=== PATIENT | female | born 1980 | race Hispanic/Latino ===

== ENCOUNTER 2018-09-04 17:50 | Emergency (ER) | payer SELFPAY ==
--- NOTE | 2018-09-04 19:03 | RAD REPORT ---
EXAM DESCRIPTION: RAD - Foot Right 3 View - 09/04/2018 6:54 pm CLINICAL HISTORY: Foot pain, twisting injury COMPARISON: None. FINDINGS: No fracture, dislocation or periosteal reaction. No pathologic bone process. Distal fibula finding is separately detailed. No air or foreign body in the soft tissues. IMPRESSION: Negative right foot examination for acute finding.
--- NOTE | 2018-09-04 19:03 | RAD REPORT ---
EXAM DESCRIPTION: RAD - Ankle Right 3 View - 09/04/2018 6:54 pm CLINICAL HISTORY: Ankle pain, twisting injury COMPARISON: None. FINDINGS: Transverse fracture is present at the distal fibula. No distraction or angulation deformit y. Distal tibia is intact. Ankle mortise is normal. No joint effusion seen. No joint space narrowing. Prominent lateral soft tissue swelling. IMPRESSION: Distal fibula fracture without distraction or angulation.
[2018-09-04] MEDS ORDERED: ACETAMINOPHEN 325 MG TABLET ONE (19:20)
[2018-09-04] MEDS ORDERED: IBUPROFEN 400 MG TAB ONE (19:20)
--- NOTE | 2018-09-04 19:32 | EDPHYS ---
Physician Documentation [facility] Name: Vane Torres Age: 38 yrs Sex: Female : 1980 Arrival Date: 09/04/2018 Time: 17:52 Bed 18 Private MD: ED Physician Charles Low HPI: 09/04 18:23 This 38 yrs old Female presents to ER via Ambulatory with complaints of Ankle cp Injury. 18:25 The patient presents with an injury, pain, that is acute, swelling, tenderness. The cp complaints affect the right ankle, right foot. 18:25 Onset: The symptoms/episode began/occurred 4 day(s) ago. Context: resulted from a cp mis-step by the patient, The patient can fully bear weight on the affected extremity. the patient is able to ambulate, with moderate difficulty. Associated signs and symptoms: Pertinent negatives: calf tenderness, numbness, weakness. Modifying factors: the symptoms are aggravated by weight bearing, movement. 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 - Social history:: Smoking status: Patient/guardian denies using tobacco. - Ebola Screening: : Patient negative for fever greater than or equal to 101.5 degrees Fahrenheit, and additional compatible Ebola Virus Disease symptoms Patient denies exposure to infectious person Patient denies travel to an Ebola-affected area in the 21 days before illness onset No symptoms or risks identified at this time. ROS: 18:30 Constitutional: Negative for body aches, chills, fever, poor PO intake. cp 18:30 Eyes: Negative for injury, pain, redness, and discharge. cp 18:30 ENT: Negative for drainage from ear(s), ear pain, sore throat, difficulty swallowing, difficulty handling secretions. 18:30 Cardiovascular: Negative for chest pain. 18:30 Respiratory: Negative for cough, shortness of breath, wheezing. 18:30 Abdomen/GI: Negative for abdominal pain, nausea, vomiting, and diarrhea, black/tarry stool, rectal bleeding. 18:30 Back: Negative for pain at rest, pain with movement. 18:30 MS/extremity: Positive for pain, swelling, tenderness, of the right ankle and right foot. 18:30 Neuro: Negative for altered mental status, headache, numbness. 18:30 All other systems are negative. Exam: 18:40 Constitutional: The patient appears in no acute distress, alert, awake, non-toxic, well cp developed, well nourished. 18:40 Head/Face: Normocephalic, atraumatic. cp 18:40 Eyes: Periorbital structures: appear normal, Conjunctiva: normal, no exudate, no injection, Lids and lashes: appear normal, bilaterally. 18:40 ENT: External ear(s): are unremarkable, Nose: is normal, Mouth: is normal, Posterior pharynx: Airway: no evidence of obstruction, patent. 18:40 Chest/axilla: Inspection: normal. 18:40 Cardiovascular: Rate: normal. 18:40 Respiratory: the patient does not display signs of respiratory distress, Respirations: normal, no use of accessory muscles, no retractions. 18:40 Abdomen/GI: Inspection: abdomen appears normal. 18:40 Back: pain, is absent, ROM is normal. 18:40 Musculoskeletal/extremity: Extremities: grossly normal except: noted in the lateral aspect of right foot and anterior aspect of right ankle and lateral right ankle: ecchymosis, swelling, tenderness, There is no evidence of decreased ROM, deformity, Achilles tendon intact and no pain to palpation proximal right fibula. Vital Signs: 18:10 BP 133 / 67; Pulse 65; Resp 16; Temp 97.5; Pulse Ox 100% on R/A; Weight 68.04 kg; aj Height 5 ft. 2 in. (157.48 cm); 18:10 Body Mass Index 27.44 (68.04 kg, 157.48 cm) Procedures: 20:20 Splinting: Splint applied to right ankle and right foot using walking boot. applied by cp nurse. Examined by me, post splint application: neurovascular intact, Patient tolerated well. MDM: 18:18 Patient medically screened. [facility] 19:30 Data reviewed: vital signs, nurses notes, radiologic studies, plain films, and as a cp result, I will discharge patient. 19:30 Differential diagnosis: fracture, sprain, dislocation. Counseling: I had a detailed cp discussion with the patient and/or guardian regarding: the historical points, exam findings, and any diagnostic results supporting the discharge/admit diagnosis, radiology results, the need for outpatient follow up, a orthopedic surgeon, to return to the emergency department if symptoms worsen or persist or if there are any questions or concerns that arise at home. Response to treatment: the patient's symptoms have markedly improved after treatment, and as a result, I will discharge patient. 09/04 18:23 Order name: XRAY Ankle RIGHT 3 view cp 09/04 18:23 Order name: XRAY Foot RIGHT 3 View cp 09/04 19:27 Order name: Walking boot; Complete Time: 20:23 cp 09/04 19:27 Order name: Crutches; Complete Time: 20:23 cp Administered Medications: 19:10 Drug: Ibuprofen 800 mg Route: PO; jb4 20:14 Follow up: Response: No adverse reaction ak1 19:10 Drug: Tylenol 650 mg Route: PO; jb4 20:14 Follow up: Response: No adverse reaction ak1 Disposition: 09/05 06:20 Co-signature as Attending Physician, Charles Low MD I agree with the assessment and ann plan of care. Disposition: 09/04/18 19:31 Discharged to Home. Impression: Right distal fibula fracture. - Condition is Stable. - Discharge Instructions: Fibular Ankle Fracture Treated With or Without Immobilization, Adult. - Prescriptions for Ibuprofen 800 mg Oral Tablet - take 1 tablet by ORAL route every 8 hours As needed take with food; 30 tablet. Tylenol- Codeine #3 300-30 mg Oral Tablet - take 2 tablets by ORAL route every 6 hours As needed; 20 tablet. - Medication Reconciliation Form, Thank You Letter, Antibiotic Education, Prescription Opioid Use form. - Follow up: Anton Doherty MD; When: 2 - 3 days; Reason: Recheck today's complaints. - Problem is new. - Symptoms have improved. Signatures: Dispatcher [employer] EDLory Arenas RN RN aj Anderson, Corey, MD MD cha Page, Corey, PA PA cp Bryson, James, RN RN jb4 Krystal Fletcher RN ak1 Corrections: (The following items were deleted from the chart) 09/04 20:24 19:31 09/04/2018 19:31 Discharged to Home. Impression: Right distal fibula fracture. jb4 Condition is Stable. Forms are Medication Reconciliation Form, Thank You Letter, Antibiotic Education, Prescription Opioid Use. Follow up: Anton Doherty; When: 2 - 3 days; Reason: Recheck today's complaints. Problem is new. Symptoms have improved. cp 09/05 17:27 09/04 19:20 Splinting: Splint applied to right ankle and right foot using walking boot. cp applied by nurse. Examined by me, post splint application: neurovascular intact, Patient tolerated well, cp
--- NOTE | 2018-09-04 19:32 | ER ---
Nurse's Notes [facility] Name: Vane Torres Age: 38 yrs Sex: Female : 1980 Arrival Date: 09/04/2018 Time: 17:52 Bed 18 Private MD: Diagnosis: Right distal fibula fracture Presentation: 09/04 18:09 Presenting complaint: Patient states: Bruising and swelling to right ankle since aj Monday. Transition of care: patient was not received from another setting of care. Onset of symptoms was August 30, 2018. Risk Assessment: Do you want to hurt yourself or someone else? Patient reports no desire to harm self or others. Initial Sepsis Screen: Does the patient meet any 2 criteria? No. Patient's initial sepsis screen is negative. Does the patient have a suspected source of infection? No. Patient's initial sepsis screen is negative. Care prior to arrival: None. 18:09 Method Of Arrival: Ambulatory aj 18:09 Acuity: BEBETO 4 aj Triage Assessment: 18:10 General: Appears in no apparent distress. comfortable, Behavior is calm, cooperative, aj appropriate for age. Pain: Complains of pain in right ankle and anterior aspect of right ankle. Neuro: Level of Consciousness is awake, alert, obeys commands, Oriented to person, place, time, situation, Appropriate for age. Respiratory: Airway is patent Respiratory effort is even, unlabored, Respiratory pattern is regular, symmetrical. Derm: Skin is intact, is healthy with good turgor, Skin is pink, warm \\T\\ dry. normal. Musculoskeletal: Range of motion: intact in all extremities. Injury Description: Bruise sustained to right ankle and lateral aspect of right foot. 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 - Social history:: Smoking status: Patient/guardian denies using tobacco. - Ebola Screening: : Patient negative for fever greater than or equal to 101.5 degrees Fahrenheit, and additional compatible Ebola Virus Disease symptoms Patient denies exposure to infectious person Patient denies travel to an Ebola-affected area in the 21 days before illness onset No symptoms or risks identified at this time. Screenin:25 Abuse screen: Denies threats or abuse. Nutritional screening: No deficits noted. ae4 Tuberculosis screening: No symptoms or risk factors identified. Fall Risk None identified. Assessment: 18:22 General: Appears in no apparent distress. comfortable, Behavior is calm, cooperative. ae4 18:22 Pain: Complains of pain in left foot, left lateral ankle, lateral aspect of left foot, ae4 left Achilles and left heel. Neuro: Level of Consciousness is awake, alert, obeys commands, Oriented to person, place, time, situation, Appropriate for age. Cardiovascular: Patient's skin is warm and dry. Respiratory: Airway is patent Respiratory effort is even, unlabored, relaxed, Respiratory pattern is regular, symmetrical. GI: No signs and/or symptoms were reported involving the gastrointestinal system. : No signs and/or symptoms were reported regarding the genitourinary system. EENT: No signs and/or symptoms were reported regarding the EENT system. Derm: Bruising that is dark purple, on left lateral ankle and lateral aspect of left foot. Musculoskeletal: Swelling present in left lateral ankle, lateral aspect of left foot, left Achilles, left heel, left medial ankle, medial aspect of left foot, anterior aspect of left ankle and dorsum of left foot. Injury Description: Patient states she tripped and "rolled" her ankle. 19:00 Reassessment: Patient appears in no apparent distress at this time. Patient and/or jb4 family updated on plan of care and expected duration. Pain level reassessed. Patient is alert, oriented x 3, equal unlabored respirations, skin warm/dry/pink. 20:00 Reassessment: Patient appears in no apparent distress at this time. Patient and/or jb4 family updated on plan of care and expected duration. Pain level reassessed. Patient is alert, oriented x 3, equal unlabored respirations, skin warm/dry/pink. Vital Signs: 18:10 BP 133 / 67; Pulse 65; Resp 16; Temp 97.5; Pulse Ox 100% on R/A; Weight 68.04 kg; aj Height 5 ft. 2 in. (157.48 cm); 18:10 Body Mass Index 27.44 (68.04 kg, 157.48 cm) ED Course: 17:52 Patient arrived in ED. as 18:10 Triage completed. aj 18:10 Arm band placed on right wrist. Patient placed in an exam room. aj 18:13 Ever Mejia, RN is Primary Nurse. ae4 18:14 Charles White PA is PHCP. cp 18:15 Charles Low MD is Attending Physician. cp 18:54 XRAY Ankle RIGHT 3 view In Process Unspecified. EDMS 18:54 XRAY Foot RIGHT 3 View In Process Unspecified. EDMS 19:24 Placed in gown. Bed in low position. Call light in reach. Side rails up X 1. Pulse ox ae4 on. NIBP on. Warm blanket given. 19:30 Anton Doherty MD is Referral Physician. cp 20:00 No provider procedures requiring assistance completed. Patient did not have IV access jb4 during this emergency room visit. Administered Medications: 19:10 Drug: Ibuprofen 800 mg Route: PO; jb4 20:14 Follow up: Response: No adverse reaction ak1 19:10 Drug: Tylenol 650 mg Route: PO; jb4 20:14 Follow up: Response: No adverse reaction ak1 Outcome: 19:31 Discharge ordered by MD. cp 20:00 Discharged to home ambulatory. jb4 20:00 Condition: stable 20:00 Discharge instructions given to patient, family, Instructed on discharge instructions, follow up and referral plans. medication usage, Demonstrated understanding of instructions, follow-up care, medications, Prescriptions given X 2. 20:24 Patient left the ED. jb4 Signatures: Dispatcher [employer] EDMS Lory Cantrell RN RN aj Martinez, Amelia as Krenek, Amber RN RN ak1 Charles White PA PA cp Bryson, James RN RN jb4 Ever Mejia, RN RN ae4 Corrections: (The following items were deleted from the chart) 19:24 18:22 General: Appears in no apparent distress. comfortable, ae4 ae4
== END 2018-09-04 20:24 | disposition home or self-care (01) ==
LOC: ER 17:50
DX: S82.831A Other fracture of upper and lower end of right fibula, initial encounter for closed fracture (principal)
CPT/HCPCS: 99284